=== PATIENT | male | born 1975 | race Caucasian/White ===

== ENCOUNTER 2021-01-09 15:02 | Emergency (ER) | payer SELFPAY ==
[2021-01-09 15:21] VITALS: BP 144/82; PULSE 104; TEMP 99.3; BMI 28.1
[2021-01-09] MEDS ORDERED: METHOCARBAMOL 500 MG TABLET PO ONE (15:58)
[2021-01-09] MEDS ORDERED: NAPROXEN 500 MG TABLET PO ONE (15:58)
[2021-01-09] MEDS ORDERED: NAPROXEN 500 MG TABLET ONE (16:03)
[2021-01-09] MEDS ORDERED: METHOCARBAMOL 500 MG TABLET ONE (16:03)
== END 2021-01-09 16:05 | disposition home or self-care (01) ==
LOC: JER 15:02 → JERFT 15:02
DX: M62.830 Muscle spasm of back (principal)
CPT/HCPCS: 72100-TC-FY; 99283-25